=== PATIENT | female | born 1990 ===

== ENCOUNTER 2021-02-22 15:31 | Emergency (ER) | payer OTHER, SELFPAY ==
[2021-02-22 15:34] VITALS: BP 118/64; PULSE 117; RESP 20; TEMP 36.3; O2SAT 93
--- NOTE | 2021-02-22 16:28 | PC.NURSE ---
Patient father reported to this nurse at this time that he was here the other night and it took a long time for his to be seen. He is now here with his daughter and is upset with the amount of time it is taking. I reported to patient we are seeing the patients in order of the appropriate triage level. I informed him that we are moving as quickly as we can, but the emergency room is full. Patient father reports he will be taking her to another hospital. I informed him they are welcome to do so. patient ambulated from ED. Patient alert and oriented at time of departure from ED. Nothing further to report.
== END 2021-02-23 02:30 | disposition left against medical advice (07) ==
LOC: ANHED 16:44
DX: Z53.21 Procedure and treatment not carried out due to patient leaving prior to being seen by health care provider (principal); R06.02 Shortness of breath
CPT/HCPCS: 99199

== ENCOUNTER 2023-02-28 11:58 | Emergency (ER) | payer OTHER, SELFPAY ==
[2023-02-28 12:13] VITALS: BP 121/65; PULSE 78; RESP 16; TEMP 37.2; O2SAT 99
--- NOTE | 2023-02-28 12:17 | ED.EAR ---
HPI - Ear Problem General Chief complaint: Ear Stated complaint: right ear pain Time Seen by Provider: 02/28/23 12:17 Source: patient and RN notes reviewed Mode of arrival: ambulatory Limitations: no limitations History of Present Illness HPI Narrative: 32 year old female presents with concern for right ear pain. She denies rhinorrhea, nasal congestion, sore throat. Denies drainage from the ear. MD Complaint: ear pain Related Data Allergies Allergy/AdvReac Type Severity Reaction Status Date / Time No Known Allergies Allergy Verified 02/28/23 12:17 Review of Systems Review of Systems: CONSTITUTIONAL: Denies malaise, chills, sweats, or fever. EYES: Denies visual changes, redness, or discharge. ENT: Denies rhinorrhea, congestion, sinus pain, and sore throat. Reports right ear pain CARDIOVASCULAR: Denies chest pain, palpitations, or edema. RESPIRATORY: Denies cough. Denies dyspnea. GASTROINTESTINAL: Denies abdominal pain, nausea, vomiting, diarrhea SKIN: Denies rash or itching. MUSCULOSKELETAL: Denies myalgia. NEUROLOGIC: Denies headache. All systems reviewed & are unremarkable except as noted in HPI and below PMFSH Comments At time of signature, agree with nursing past medical, surgical, social and family history. There is no relevant family history pertinent to the presenting complaint Exam Narrative: GENERAL: Well-appearing, well-nourished, and in no acute distress. HEAD: Normocephalic EYES: PERRLA, conjunctivae clear ENT: Nares clear, turbinates edematous, clear discharge. Mucous membranes moist. Left tM pearly hein with sharp light reflex, right TM not visible due to cerumen impaction; right tragal tenderness. Oropharynx not erythematous without lesions. Tonsils not enlarged and without exudate, no drooling, no hoarseness, no trismus, uvula midline. NECK: Supple. No lymphadenopathy CHEST: Clear to auscultation, breath sounds equal. No wheezing, rhonchi, rales, or stridor. No respiratory distress, speaks in full sentences. HEART: Regular rate and rhythm. No murmur heard. SKIN: Warm, dry, no rash. NEURO: Alert and oriented x3. PSYCH: Normal mood and affect Course Course Emergency Course: Patient is aware of diagnosis, understands and agrees to treatment plan. Anticipatory guidance given. Patient agrees to follow-up as directed and is aware of reasons to seek care at the emergency department. Portions of this record may have been created with voice recognition software Level of Care: Express Care Visit Vital Signs Vital signs: Vital Signs Temperature 98.9 F 02/28/23 12:13 Pulse Rate 78 02/28/23 12:13 Respiratory Rate 16 02/28/23 12:13 Blood Pressure 121/65 02/28/23 12:13 Pulse Oximetry 99 02/28/23 12:13 Oxygen Delivery Room Air 02/28/23 12:13 Temperature 98.9 F 02/28/23 12:13 Pulse Rate 78 02/28/23 12:13 Respiratory Rate 16 02/28/23 12:13 Blood Pressure 121/65 02/28/23 12:13 Pulse Oximetry 99 02/28/23 12:13 Oxygen Delivery Room Air 02/28/23 12:13 Reviewed. Procedures Ear Wax Removal Right Ear: Ear Wax Removal Date: 03/19/23 Ear Wax Removal Time: 12:24 Cerumenolytic Used: other (hydrogen peroxide) Results: Re-examined: cerumen removed completely TM Examination: TM(s) intact, normal appearance Ear Canal Exam: atraumatic Patient Tolerated Procedure: well Complications: no problems Technique: ear canal irrigated and ear canal curetted Medical Decision Making MDM Narrative Medical decision making narrative: Differential diagnosis considered: Davidson virus, strep pharyngitis, allergic rhinitis, upper respiratory tract infection, sinusitis, rhinosinusitis, nasopharyngitis. viral pharyngitis, otitis media, otitis externa, otitis effusion, cerumen impaction, foreign body. Exam findings show no acute concerns or changes; patient is non-toxic appearing and is in no distress. Patient is appropriate for o
== END 2023-02-28 13:10 | disposition home or self-care (01) ==
PROVIDERS: Emergency Provider Nurse Practitioner
DX: H66.91 Otitis media, unspecified, right ear (principal); H60.91 Unspecified otitis externa, right ear; H61.21 Impacted cerumen, right ear
CPT/HCPCS: 69210; 99213; G0463